=== PATIENT | female | born 1990 ===

== ENCOUNTER 2021-11-13 15:40 | Emergency (ER) | payer MEDICAID, OTHER ==
[~2021-11-13] VITALS: Ht 170.2 cm; Wt 83.9 kg
[2021-11-13] MEDS ORDERED: SODIUM CHLORIDE 0.9% 1,000 ML IV ONE (17:00)
[2021-11-13] MEDS ORDERED: IOHEXOL 300 MG/ML 100ML BOTTLE IJ ONE (17:11)
[2021-11-13 19:30] LABS: Hematocrit 40.8 % (36.0-46.0); Hemoglobin 13.8 g/dL (12.2-16.2); Mean Corpuscular Hgb Conc. 33.8 g/dL (32.0-36.0); Mean Corpuscular Volume 85.9 fL (80.0-100.0); Red Blood Cells 4.75 10^6/uL (4.0-5.20); Red Cell Distribution Width 13.1 % (11.8-14.3); White Blood Cell 10.5 10^3/uL (4.4-10.8)
[2021-11-13 19:31] LABS: Basophils % (manual) 0 (0.0-2.0); Blast Cells 0; Eosinophils % (manual) 0 (0-7); Metamyelocytes % 0; Myelocytes % 0; Promyelocytes % 0; Reactive Lymphocytes 0
[2021-11-13 19:44] LABS: Albumin 3.9 g/dL (3.4-5.0); Band Neutrophils % (manual) 2; Calcium 8.9 mg/dL (8.5-10.1); Lymphocytes % (manual) 27 (10.0-50.0); Monocytes % (manual) 6 (0-12); Potassium 3.6 mmol/L (3.5-5.1)
[2021-11-13] MEDS ORDERED: MORPHINE SULFATE 4 MG/ML SYR/VIAL IV ONE (19:45)
[2021-11-13 19:48] LABS: BUN/Creatinine Ratio 21.3; Bilirubin, Total 0.3 mg/dL (0.2-1.0); Total Protein 7.3 g/dL (6.4-8.2)
[2021-11-13] MEDS ORDERED: HYDROmorphone HCL 2 MG/ML VL IV ONE (23:00)
[2021-11-14] MEDS ORDERED: NEOMYCIN-BACITRACIN-POLYM UNITDOSE PKG TOP OINT TOP ONE (01:00)
[2021-11-14 02:40] VITALS: BP 110/78
== END 2021-11-14 01:21 | disposition home or self-care (01) ==
LOC: ER 15:40 → EDBD 15:40 → ER 11-14 01:21
DX: S01.81XA Laceration without foreign body of other part of head, initial encounter (principal); S16.1XXA Strain of muscle, fascia and tendon at neck level, initial encounter; R09.89 Other specified symptoms and signs involving the circulatory and respiratory systems; V43.52XA Car driver injured in collision with other type car in traffic accident, initial encounter; Y93.89 Activity, other specified; Y92.89 Other specified places as the place of occurrence of the external cause; Y99.8 Other external cause status
CPT/HCPCS: 36415; 70450; 70486; 71260; 72125; 74177; 80053; 83690; 84702; 85007; 85027; 96361; 96374; 96375; 99285; J1170; J2270; J7030; Q9967